=== PATIENT | male | born 1955 | race African-American/Black ===

== ENCOUNTER 2016-12-01 12:33 | Emergency (ER) | payer MEDICARE ==
[2016-12-01 14:18] LABS: Hematocrit 41 % (42-52); Hemoglobin 13.5 g/dl (14.0-18.0); Mean Corpuscular HGB Conc 33 g/dl (31-36); Mean Corpuscular Hemoglobin 32 pg (27-31); Mean Corpuscular Volume 95 fL (80-94); Mean Platelet Volume 9 um3 (7.4-10.4); Red Blood Count 4.27 10^6/ul (4.0-5.4); Red Cell Distribution Width 14 % (10.5-15); White Blood Count 4.2 10^3/ul (3.5-10.8)
[2016-12-01 14:42] LABS: ALT 20 U/L (7-52); AST 45 U/L (13-39); Albumin 3.8 g/dL (3.2-5.2); Alkaline Phosphatase 70 U/L (34-104); Anion Gap 9 mmol/L (2-11); BUN/Creatinine Ratio 9.1 (8-20); Blood Urea Nitrogen 8 mg/dL (6-24); C Reactive Protein 10.83 mg/L (< 5.00); CO2 Carbon Dioxide 25 mmol/L (22-32); Calcium 8.9 mg/dL (8.6-10.3); Chloride 104 mmol/L (101-111); EGFR Non-African American 88.6 (>60); Globulin 3.3 g/dL (2-4); Glucose 88 mg/dL (70-100); Lipase 31 U/L (11.0-82.0); Potassium 3.9 mmol/L (3.5-5.0); Sodium 138 mmol/L (133-145); Total Protein 7.1 g/dL (6.4-8.9)
[2016-12-01 15:01] LABS: Alcohol < 10 mg/dL (<10)
[2016-12-01 15:53] LABS: Urine Bilirubin Negative (Negative); Urine Glucose Negative (Negative); Urine Nitrite Negative (Negative)
[2016-12-01] MEDS ORDERED: Iohexol 300* (CONTRAST) 10 ML SDV IV ONE (16:10)
--- NOTE | 2016-12-01 16:51 | RAD ---
CLINICAL HISTORY: Left lower quadrant pain. Relevant surgical history includes appendectomy. COMPARISON: None TECHNIQUE: Contrast enhanced CT examination of the abdomen and pelvis from the lung bases through the initial tuberosities. The patient received 93 mL Omnipaque 300 intravenously prior to imaging.The patient received oral contrast as well prior to imaging. FINDINGS: VISUALIZED LUNG BASES: The visualized lung bases are grossly clear. There is no pleural effusion. ABDOMEN AND PELVIS: The liver is homogenously hypodense. The spleen, pancreas and adrenal glands are grossly normal in appearance. The gallbladder is normal. The kidneys are normal in appearance without focal mass, calcification or signs of hydronephrosis. There are contrast has progressed as far as the rectum. The small and large bowel are not distended. The patient's normal appendix is identified in the right lower quadrant. There is no gross retroperitoneal or mesenteric lymphadenopathy. The pelvic viscera is normal in appearance. The abdominal aorta and iliac arteries are normal in course and diameter. Degenerative changes include multilevel loss of intervertebral disc height involving the lower thoracic and lumbar spine and anterior marginal osteophytes at the lower thoracic spine..There are no sinister bone lesions. IMPRESSION: 1. CT findings are compatible with hepatic steatosis or other chronic infiltrative disease of the liver. 2. There is no definite inflammatory change of the gastrointestinal tract or evidence of obstruction.
[2016-12-01 17:03] VITALS: BP 156/90
--- NOTE | 2016-12-01 23:42 | ED ---
[facility], scribed for Rod Flanagan MD on 12/01/16 at 1429 . Abdominal Pain/Male - HPI Summary HPI Summary: Patient is a 60-year-old male presenting to the ED with a CC of constant LLQ pain. Patient reports this pain has been present for months, and has been gradually worsening. He describes pain as like "a torn muscle," but states it is not aggravated by movement. He states pain is worst when he wakes up in the morning and at night. Pt reports low PO intake, but denies weight loss and urinary symptoms. He states he drinks a 6 pack daily. - History of Current Complaint Chief Complaint: EDAbdPain Stated Complaint: ABD PAIN Time Seen by Provider: 12/01/16 13:37 Hx Obtained From: Patient Onset/Duration: Gradual Onset, Lasting Weeks - months, Still Present Timing: Constant Severity Initially: Mild Severity Currently: Moderate Pain Intensity: 9 Pain Scale Used: 0-10 Numeric Location: Discrete At: LLQ Radiates: No Aggravating Factor(s): Other: - worse in the morning and night Alleviating Factor(s): Nothing Associated Signs And Symptoms: Positive: Negative. Negative: Urinary Symptoms - Allergies/Home Medications Allergies/Adverse Reactions: Allergies Allergy/AdvReac Type Severity Reaction Status Date / Time Aspirin Allergy Hives Verified 11/16/16 17:51 PMH/Surg Hx/FS Hx/Imm Hx Endocrine/Hematology History: Denies: Hx Anticoagulant Therapy, Hx Diabetes, Hx Systemic Lupus Erythematosus Cardiovascular History: Denies: Hx Congestive Heart Failure, Hx Hypertension, Hx Pacemaker/ICD Respiratory History: Denies: Hx Asthma History: Denies: Hx Dialysis, Hx Renal Disease Musculoskeletal History: Reports: Other Musculoskeletal History - chronic pain Denies: Hx Rheumatoid Arthritis Psychiatric History: Denies: Hx Panic Disorder - Surgical History Surgery Procedure, Year, and Place: LEFT KNEE 09 [facility], APPENDIX 20 YRS AGO,BIG TOE SURGERY 23 YRS AGO Infectious Disease History: No Infectious Disease History: Reports: Hx Hepatitis - HEP C Denies: Hx Clostridium Difficile, Hx Human Immunodeficiency Virus (HIV), Hx of Known/Suspected MRSA, Hx Shingles, Hx Tuberculosis, Hx Known/Suspected VRE, Hx Known/Suspected VRSA, History Other Infectious Disease, Traveled Outside the [place] in Last 30 Days - Family History Known Family History: Positive: Cardiac Disease - cardiomegaly (brother) - Social History Alcohol Use: Daily Hx Tobacco Use: Yes Smoking Status (MU): Heavy Every Day Tobacco Smoker Type: Cigarettes Amount Used/How Often: 1/2 PPD Have You Smoked in the Last Year: Yes Review of Systems Gastrointestinal: Other - low PO intake Positive: Abdominal Pain - LLQ Negative: dysuria, frequency All Other Systems Reviewed And Are Negative: Yes Physical Exam Triage Information Reviewed: Yes Vital Signs On Initial Exam: Initial Vitals Temp Pulse Resp BP Pulse Ox 99 F 93 16 157/83 98 12/01/16 12:35 12/01/16 12:35 12/01/16 12:35 12/01/16 12:35 12/01/16 12:35 Vital Signs Reviewed: Yes Appearance: Positive: Well-Appearing, No Pain Distress, Thin Skin: Positive: Warm, Skin Color Reflects Adequate Perfusion, Dry Head/Face: Positive: Normal Head/Face Inspection Eyes: Positive: Normal ENT: Positive: Normal ENT inspection Neck: Positive: Supple, Nontender Respiratory/Lung Sounds: Positive: Clear to Auscultation, Breath Sounds Present Cardiovascular: Positive: RRR Abdomen Description: Positive: Soft, Other: - LLQ tenderness Bowel Sounds: Positive: Present Musculoskeletal: Positive: Normal Neurological: Positive: Normal Psychiatric: Positive: Affect/Mood Appropriate - [place] Coma Scale Coma Scale Total: 15 Diagnostics - Vital Signs Vital Signs Temp Pulse Resp BP Pulse Ox 12/01/16 13:00 78 146/78 98 12/01/16 12:56 76 98 12/01/16 12:54 155/85 12/01/16 12:35 99 F 93 16 157/83 98 - Laboratory Lab Results: Lab Results 12/01/16 12/01/16 12/01/16 Range/Units 14:05 14:05 14:05 WBC 4.2 (3.5-10.8) 10^3/ul RBC 4.27 (4.0-5.4) 10^6/ul Hgb 13.5 L (14.0-18.0) g/dl Hct 41 L (42-52) % MCV 95 H (80-94) fL MCH 32 H (27-31) pg MCHC 33 (31-36) g/dl RDW 14 (10.5-15) % Plt Count 123 L (150-450) 10^3/ul MPV 9 (7.4-10.4) um3 Neut % (Auto) 57.0 (38-83) % Lymph % (Auto) 23.0 L (25-47) % O'Brien % (Auto) 15.9 H (1-9) % Eos % (Auto) 3.5 (0-6) % Baso % (Auto) 0.6 (0-2) % Absolute Neuts (auto) 2.4 (1.5-7.7) 10^3/ul Absolute Lymphs (auto) 1.0 (1.0-4.8) 10^3/ul Absolute Monos (auto) 0.7 (0-0.8) 10^3/ul Absolute Eos (auto) 0.1 (0-0.6) 10^3/ul Absolute Basos (auto) 0 (0-0.2) 10^3/ul Absolute Nucleated RBC 0.01 10^3/ul Nucleated RBC % 0.2 Sodium 138 (133-145) mmol/L Potassium 3.9 (3.5-5.0) mmol/L Chloride 104 (101-111) mmol/L Carbon Dioxide 25 (22-32) mmol/L Anion Gap 9 (2-11) mmol/L BUN 8 (6-24) mg/dL Creatinine 0.88 (0.67-1.17) mg/dL Est GFR ( Amer) 114.0 (>60) Est GFR (Non-Af Amer) 88.6 (>60) BUN/Creatinine Ratio 9.1 (8-20) Glucose 88 (70-100) mg/dL Lactic Acid Calcium 8.9 (8.6-10.3) mg/dL Total Bilirubin 1.10 H (0.2-1.0) mg/dL AST 45 H (13-39) U/L ALT 20 (7-52) U/L Alkaline Phosphatase 70 (34-104) U/L Ammonia TNP C-Reactive Protein 10.83 H (< 5.00) mg/L Total Protein 7.1 (6.4-8.9) g/dL Albumin 3.8 (3.2-5.2) g/dL Globulin 3.3 (2-4) g/dL Albumin/Globulin Ratio 1.2 (1-3) Lipase 31 (11.0-82.0) U/L Urine Color Urine Appearance Urine pH (5-9) Ur Specific [place] (1.010-1.030) Urine Protein (Negative) Urine Ketones (Negative) Urine Blood (Negative) Urine Nitrate (Negative) Urine Bilirubin (Negative) Urine Urobilinogen (Negative) Ur Leukocyte Esterase (Negative) Urine Glucose (Negative) Serum Alcohol < 10 (<10) mg/dL 12/01/16 12/01/16 12/01/16 Range/Units 14:05 15:01 15:01 WBC (3.5-10.8) 10^3/ul RBC (4.0-5.4) 10^6/ul Hgb (14.0-18.0) g/dl Hct (42-52) % MCV (80-94) fL MCH (27-31) pg MCHC (31-36) g/dl RDW (10.5-15) % Plt Count (150-450) 10^3/ul MPV (7.4-10.4) um3 Neut % (Auto) (38-83) % Lymph % (Auto) (25-47) % O'Brien % (Auto) (1-9) % Eos % (Auto) (0-6) % Baso % (Auto) (0-2) % Absolute Neuts (auto) (1.5-7.7) 10^3/ul Absolute Lymphs (auto) (1.0-4.8) 10^3/ul Absolute Monos (auto) (0-0.8) 10^3/ul Absolute Eos (auto) (0-0.6) 10^3/ul Absolute Basos (auto) (0-0.2) 10^3/ul Absolute Nucleated RBC 10^3/ul Nucleated RBC % Sodium (133-145) mmol/L Potassium (3.5-5.0) mmol/L Chloride (101-111) mmol/L Carbon Dioxide (22-32) mmol/L Anion Gap (2-11) mmol/L BUN (6-24) mg/dL Creatinine (0.67-1.17) mg/dL Est GFR ( Amer) (>60) Est GFR (Non-Af Amer) (>60) BUN/Creatinine Ratio (8-20) Glucose (70-100) mg/dL Lactic Acid TNP 0.7 Calcium (8.6-10.3) mg/dL Total Bilirubin (0.2-1.0) mg/dL AST (13-39) U/L ALT (7-52) U/L Alkaline Phosphatase (34-104) U/L Ammonia 48 C-Reactive Protein (< 5.00) mg/L Total Protein (6.4-8.9) g/dL Albumin (3.2-5.2) g/dL Globulin (2-4) g/dL Albumin/Globulin Ratio (1-3) Lipase (11.0-82.0) U/L Urine Color Urine Appearance Urine pH (5-9) Ur Specific [place] (1.010-1.030) Urine Protein (Negative) Urine Ketones (Negative) Urine Blood (Negative) Urine Nitrate (Negative) Urine Bilirubin (Negative) Urine Urobilinogen (Negative) Ur Leukocyte Esterase (Negative) Urine Glucose (Negative) Serum Alcohol (<10) mg/dL 12/01/16 Range/Units 15:35 WBC (3.5-10.8) 10^3/ul RBC (4.0-5.4) 10^6/ul Hgb (14.0-18.0) g/dl Hct (42-52) % MCV (80-94) fL MCH (27-31) pg MCHC (31-36) g/dl RDW (10.5-15) % Plt Count (150-450) 10^3/ul MPV (7.4-10.4) um3 Neut % (Auto) (38-83) % Lymph % (Auto) (25-47) % O'Brien % (Auto) (1-9) % Eos % (Auto) (0-6) % Baso % (Auto) (0-2) % Absolute Neuts (auto) (1.5-7.7) 10^3/ul Absolute Lymphs (auto) (1.0-4.8) 10^3/ul Absolute Monos (auto) (0-0.8) 10^3/ul Absolute Eos (auto) (0-0.6) 10^3/ul Absolute Basos (auto) (0-0.2) 10^3/ul Absolute Nucleated RBC 10^3/ul Nucleated RBC % Sodium (133-145) mmol/L Potassium (3.5-5.0) mmol/L Chloride (101-111) mmol/L Carbon Dioxide (22-32) mmol/L Anion Gap (2-11) mmol/L BUN (6-24) mg/dL Creatinine (0.67-1.17) mg/dL Est GFR ( Amer) (>60) Est GFR (Non-Af Amer) (>60) BUN/Creatinine Ratio (8-20) Glucose (70-100) mg/dL Lactic Acid Calcium (8.6-10.3) mg/dL Total Bilirubin (0.2-1.0) mg/dL AST (13-39) U/L ALT (7-52) U/L Alkaline Phosphatase (34-104) U/L Ammonia C-Reactive Protein (< 5.00) mg/L Total Protein (6.4-8.9) g/dL Albumin (3.2-5.2) g/dL Globulin (2-4) g/dL Albumin/Globulin Ratio (1-3) Lipase (11.0-82.0) U/L Urine Color Yellow Urine Appearance Clear Urine pH 5.0 (5-9) Ur Specific [place] 1.019 (1.010-1.030) Urine Protein Negative (Negative) Urine Ketones 1+ H (Negative) Urine Blood Negative (Negative) Urine Nitrate Negative (Negative) Urine Bilirubin Negative (Negative) Urine Urobilinogen Negative (Negative) Ur Leukocyte Esterase Negative (Negative) Urine Glucose Negative (Negative) Serum Alcohol (<10) mg/dL Result Diagrams: 12/01/16 14:05 12/01/16 14:05 Lab Statement: Any lab studies that have been ordered have been reviewed, and results considered in the medical decision making process. - CT CT A/P W/ CT Interpretation Completed By: Radiologist - IMPRESSION: 1. CT findings are compatible with hepatic steatosis or other chronic infiltrative disease of the liver. 2. There is no definite inflammatory change of the gastrointestinal tract or evidence of obstruction. Re-Evaluation - Re-Evaluation First Eval Re-Evaluation Time: 16:56 Comment: Discussed CT findings and lab results with patient. Abdominal Pain Fem Course/Dx - Course Course Of Treatment: Mr. Lorenzo has had LLQ pain for months and no source was found on my evaluation. I recommended GI F/U. - Diagnoses Provider Diagnoses: Abdominal pain Discharge - Discharge Plan Condition: Stable Disposition: HOME Prescriptions: traMADol TAB* [Ultram*] 25 mg PO Q6HR PRN #20 tab MDD 4 PRN Reason: Pain Patient Education Materials: Abdominal Pain (ED) Referrals: [facility] [place] [facility]IAN REFERRAL [Outside] Additional Instructions: Please use the Physician Referral Service to find a PCP and follow up with them. The documentation as recorded by the [facility] accurately reflects the service I personally performed and the decisions made by me, Rod Flanagan MD.
== END 2016-12-01 17:03 | disposition home or self-care (01) ==
LOC: ED 12:33
DX: R10.32 Left lower quadrant pain (principal); Z88.6 Allergy status to analgesic agent; G89.29 Other chronic pain; B19.20 Unspecified viral hepatitis C without hepatic coma
CPT/HCPCS: 36415; 74177; 80053; 80320; 81003; 82140; 83605; 83690; 85025; 86140; 99282; G0480; Q9967

== ENCOUNTER 2017-01-03 14:35 | Emergency (ER) | payer MEDICARE ==
--- NOTE | 2017-01-03 15:12 | UC ---
General HPI - HPI Summary HPI Summary: The patient comes in today for: 1. Upper back pain, neck pain, left shoulder pain, "I think I got hit in the eye--it has a little dent in it": Onset: "a couple days ago." Palliative/provocative: Pain is worse if he is in a seated position and he has not moved for a while-moving at that time makes it worse. Ice made the eye better yesterday. Quality: Dull Region: More of the right shoulder and middle of the upper back. Severity: 12/17 Time: Comes and goes--depending on his movement. It is better when he moves around--more of a pain after he sits a while and then moves around. Associated symptoms: Fevers: None Event: He fell forwards a few days ago. He was drinking and thinks that he tripped on his way out of his home. He landed on his hands, but he keep moving hitting his head on the staircase. He laid there for a minute and pushed himself up. He got himself "turned around" and went back upstairs and sat down. He stayed there for a while. He denies a headache, but states that he thinks that he had LOC. He describes disorientation initially, but not now. He denies any weakness of numbness. He had some nausea initially, but not now. He does not complain of any FB sensation in the eye--just the "dent." * - History of Current Complaint Chief Complaint: UCBackPain Stated Complaint: NECK,BACK INJURY, EYE INJURY Time Seen by Provider: 01/03/17 15:00 Hx Obtained From: Patient - Allergy/Home Medications Allergies/Adverse Reactions: Allergies Allergy/AdvReac Type Severity Reaction Status Date / Time Aspirin Allergy Hives Verified 01/03/17 14:42 PMH/Surg Hx/FS Hx/Imm Hx Previously Healthy: No - Lower back pain--w/ hx injections. Other History Of: Hepatitis C - Had Hepatitis C but treated and it is "cleared. " Negative For: Anticoagulant Therapy - Surgical History Surgical History: Yes Surgery Procedure, Year, and Place: LEFT KNEE 09 [facility], APPENDIX 20 YRS AGO,BIG TOE SURGERY 23 YRS AGO - Family History Known Family History: Positive: Cardiac Disease - cardiomegaly (brother), Respiratory Disease - Brother asthma - Social History Occupation: Unemployed Lives: Alone Alcohol Use: Daily - He drinks about two to three 16 ounce bottles/day. Alcohol Amount: a couple can a beer a day Substance Use Type: None Substance Use Comment - Amount & Last Used: hx Smoking Status (MU): Heavy Every Day Tobacco Smoker Type: Cigarettes Amount Used/How Often: 1/2 PPD Have You Smoked in the Last Year: Yes Household Exposure Type: Cigarettes Review of Systems Constitutional: Negative Skin: Negative Eyes: Negative ENT: Negative Respiratory: Negative Cardiovascular: Chest Pain - Present--ache-like. It hurts more when he takes a deep breath. It is retrosternal. exertion does not make it worse. Gastrointestinal: Negative Genitourinary: Negative Musculoskeletal: Arthralgia All Other Systems Reviewed And Are Negative: Yes Physical Exam Triage Information Reviewed: Yes Appearance: Well-Appearing, No Pain Distress, Thin Vital Signs: Initial Vital Signs Temp 97.0 F 01/03/17 14:37 Pulse 95 01/03/17 14:37 Resp 20 01/03/17 14:37 BP 142/84 01/03/17 14:37 Pulse Ox 97 01/03/17 14:37 Vital Signs Reviewed: Yes Eyes: Positive: Conjunctiva Clear, Other: - The "dent" in his left eye is actually a pinguecula. No corneal abnormality seen. ENT: Positive: Hearing grossly normal. Negative: Pharyngeal erythema, Nasal congestion, Nasal drainage, TM bulging, TM dull, TM red, Tonsillar swelling, Tonsillar exudate Dental: Negative: Gross Decay/Caries @, Dental Fracture @ Neck: Positive: Supple - for his age and degree of osteoarthritis of the C- spine., Nontender, No Lymphadenopathy, Other: - He has reduced rotation bilaterally and flexion bilaterally. Respiratory: Positive: Chest non-tender, Lungs clear, No respiratory distress. Negative: Rhonchi, Wheezing Cardiovascular: Positive: RRR, No Murmur Abdomen Description: Positive: No Organomegaly, Soft. Negative: Nontender - He has tenderness of the RUQ, and the LUQ and the epigastrium. There is also tenderness of the RLQ. No masses or rebound or percussion tenderness., Distended, Guarding Musculoskeletal: Positive: Strength Intact, No Edema, ROM Limited @ - Neck, Other: - He has trigger points of pain with palpation along the medial and superior borders of the scapula bilaterally and of the trapezius bilaterally. Neurological: Positive: Alert, Muscle Tone Normal Psychological: Positive: Age Appropriate Behavior, Consolable Skin: Negative: rashes, breakdown Diagnostics - Laboratory Diagnostic Studies Completed/Ordered: EKG: Rate: 66/min. Rhythm: sinus. Poor R wave progression. Ectopy: NOne. [place] (normal---+ 30 degrees). Acute changes : None. Possible atrial enlargement. - Radiology No standard instances Xray Interpretation: No Acute Changes - He has arthritis changes of his C-spine but no intracranial bleed. He had stigmata of COPD. Radiology Interpretation Completed By: Radiologist Course/Dx - Course Course Of Treatment: Patient was told that I am not able to determine for sure what is causing his abdominal pain or chest pain. He states that he has had chronic abdominal pain. HE does not have a primary care provider. The patient was told that I don't know for sure what is causing his chest and abdominal. pain. The patient was also told that there are many causes for chest and abdominal pain--. some which are benign and some which are life-threatening. Furthermore, it was. mentioned that the life-threatening causes of chest and abdominal pain can present with. minimal, atypical, or even no symptoms. Becasue of these facts and the fact. that we don't have here all the testing methods commonly used to assess chest and abdominal. pain, and their timely resuts, my recommendation is for the patient to go to. the [facility] ([facility] [place]) ER. However, the patient declined to do this and instead states that he is going to try to get an appointment with a beef specialist. He did want some pain medications for his back. He has tolerated ultram in the past. - Differential Dx - Multi-Symptom Provider Diagnoses: Shoulder pain. 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 abdominal pain--etiology undetermined. Chest pain-- etiology undetermined. Upper back pain/muscular strain Discharge - Discharge Plan Condition: Stable Disposition: AGAINST MEDICAL ADVICE Patient Education Materials: Back Pain (ED), Pinguecula (ED) Referrals: No Primary Care Phys,NOPCP [Primary Care Provider] - [facility] [place] [facility]FERR[facility] [Outside] Additional Instructions: If you are not going to the ER for evaluation of your chest and abdominal pain, please see your primary care provider as soon as you can. If you get worse please consider going to the ER.
--- NOTE | 2017-01-03 15:43 | RAD ---
HISTORY: Head injury, loss of consciousness COMPARISONS: July 13, 2008 TECHNIQUE: Multiple contiguous axial CT scans were obtained of the head without intravenous contrast. FINDINGS: HEMORRHAGE/INFARCT: There is no hemorrhage or acute infarct. MASSES/SHIFT: There is no mass or shift. EXTRA-AXIAL SPACES: There are no extra-axial fluid collections. SULCI AND VENTRICLES: The sulci and ventricles are normal in size and position for the patient's stated age. CEREBRUM: There are no focal parenchymal abnormalities. BRAINSTEM: There are no focal parenchymal abnormalities. CEREBELLUM: There are no focal parenchymal abnormalities. VESSELS: The vessels are grossly normal. PARANASAL SINUSES: The paranasal sinuses are clear. ORBITS: The orbits are unremarkable. BONES AND SOFT TISSUE: No bone or soft tissue abnormalities are noted. OTHER: None IMPRESSION: NO ACUTE INTRACRANIAL PATHOLOGY.
--- NOTE | 2017-01-03 15:52 | RAD ---
INDICATION: Neck pain post fall. COMPARISON: July 13, 2008 TECHNIQUE: Multidetector CT images foramen magnum to lung apices without contrast. Multiplanar reformation. REPORT: Second data acquisition at the C2-C3 level due to motion artifact on the initial exam. Normal vertebral alignment accounting for exam positioning without spondylolisthesis or subluxation at any level. Negative for cervical vertebral body or posterior element fracture. Negative for paravertebral hematoma. Multilevel degenerative spondylosis with large predominant anterior osteophytes with interval worsening compared with the prior exam. Anterior ankylosis at the C6-C7 and C7-T1 levels. Diffuse facet joint osteoarthritis. C2-C3: Mild uncinate process spurring and facet joint osteoarthritis results in mild bilateral foraminal stenosis. C3-C4: Uncinate process spurring and facet joint osteoarthritis results in mild RIGHT foraminal stenosis. C4-C5: Uncinate process spurring and facet joint osteoarthritis results in mild RIGHT foraminal stenosis. IMPRESSION: No CT evidence for traumatic cervical spine injury.
--- NOTE | 2017-01-03 16:22 | RAD ---
INDICATION: Central chest pain post fall 4 days ago. History of tobacco use. COMPARISON: December 01, 2016 CT abdomen July 29, 2014 chest radiograph TECHNIQUE: Dual energy PA and routine lateral views of the chest were obtained. REPORT: Elevated lung volumes and patchy rarefaction of the interstitial markings. No alveolar consolidation, focal pulmonary lesion, pleural effusion, pneumothorax. The heart, pulmonary vasculature, and mediastinal contours are unremarkable. No fractures or suspicious focal osseous lesions. Multilevel thoracic spine degenerative spondylosis and Multilevel segmental ossification of the anterior longitudinal ligament of the thoracic spine consistent with Diffuse Idiopathic Skeletal Hyperostosis (DISH). IMPRESSION: Stigmata of obstructive lung disease. No acute pulmonary or cardiac process evident.
[2017-01-03 17:38] VITALS: BP 142/89
== END 2017-01-03 17:15 | disposition left against medical advice (07) ==
LOC: UCEAST 14:35
DX: M25.511 Pain in right shoulder (principal); M47.892 Other spondylosis, cervical region; H11.152 Pinguecula, left eye; R10.11 Right upper quadrant pain; R10.12 Left upper quadrant pain; R10.13 Epigastric pain; R07.9 Chest pain, unspecified; S29.012A Strain of muscle and tendon of back wall of thorax, initial encounter; W01.0XXA Fall on same level from slipping, tripping and stumbling without subsequent striking against object, initial encounter; Y93.01 Activity, walking, marching and hiking; Y92.9 Unspecified place or not applicable; Y99.9 Unspecified external cause status; F10.10 Alcohol abuse, uncomplicated; Z72.0 Tobacco use
CPT/HCPCS: 70450; 71020; 72125; 93005; 99212; G0463

== ENCOUNTER 2017-05-25 15:43 | Emergency (ER) | payer MEDICARE, MEDICAID ==
[2017-05-25] MEDS ORDERED: NS 0.9% 1000 ML* 1,000 ML IV ONE (16:18)
[2017-05-25 17:31] LABS: Hematocrit 38 % (42-52); Hemoglobin 12.7 g/dl (14.0-18.0); Mean Corpuscular HGB Conc 33 g/dl (31-36); Mean Corpuscular Hemoglobin 32 pg (27-31); Mean Corpuscular Volume 95 fL (80-94); Mean Platelet Volume 10 um3 (7.4-10.4); Red Blood Count 4.02 10^6/ul (4.0-5.4); Red Cell Distribution Width 14 % (10.5-15); White Blood Count 12.8 10^3/ul (3.5-10.8)
[2017-05-25 17:36] LABS: Albumin 3.9 g/dL (3.2-5.2); C Reactive Protein 123.29 mg/L (< 5.00); Comments Flag Yes; EGFR African American 121.5 (>60); EGFR Non-African American 94.5 (>60); Globulin 3.6 g/dL (2-4); Total Bilirubin 1.2 mg/dL (0.2-1.0); Total Protein 7.5 g/dL (6.4-8.9)
[2017-05-25] MEDS ORDERED: cefTRIAXone VIAL(*) 1,000 MG in NS 0.9% 50 ML* 50 ML IVPB ONE (18:01)
--- NOTE | 2017-05-25 18:06 | RAD ---
INDICATION: Productive cough. History of tobacco use. Flulike symptoms. COMPARISON: January 03, 2017 chest radiograph and December 01, [address] TECHNIQUE: Dual energy PA and routine lateral views of the chest were obtained. REPORT: Elevated lung volumes and both diffuse mild prominence of the interstitial markings and patchy rarefaction of the mid to upper lung zone interstitial markings. No focal pulmonary lesion, compelling alveolar consolidation, pleural effusion, pneumothorax. The heart, pulmonary vasculature, and mediastinal contours are unremarkable. Multilevel segmental ossification of the anterior longitudinal ligament of the thoracic spine consistent with Diffuse Idiopathic Skeletal Hyperostosis (DISH). IMPRESSION: Stigmata of obstructive lung disease. No acute pulmonary or cardiac process evident.
--- NOTE | 2017-05-25 19:01 | ED ---
David Cruz Angela, scribed for Joe Brock MD on 05/25/17 at 1619 . Influenza-Like Illness - HPI Summary HPI Summary: This pt is a 61 y/o male [place] [facility] [place], chills and productive cough for a couple of days. Pt additionally notes he has a sore throat, body aches, and intermittent subjective fevers. Pt denies rhinorrhea. No PMHx of asthma. - History of Current Complaint Chief Complaint: EDFluSymptoms Hx Obtained From: Patient Onset/Duration: Gradual Onset, Lasting Days, Still Present Severity: Moderate Associated Signs & Symptoms: Fever, F/C - chills, Cough, Sore Throat - Allergy/Home Medications Allergies/Adverse Reactions: Allergies Allergy/AdvReac Type Severity Reaction Status Date / Time Aspirin Allergy Hives Verified 01/03/17 14:42 PMH/Surg Hx/FS Hx/Imm Hx Endocrine/Hematology History: Denies: Hx Anticoagulant Therapy, Hx Diabetes, Hx Systemic Lupus Erythematosus Cardiovascular History: Denies: Hx Congestive Heart Failure, Hx Hypertension, Hx Pacemaker/ICD Respiratory History: Denies: Hx Asthma GI History: Reports: Other GI Disorders - Hepattis C History: Denies: Hx Dialysis, Hx Renal Disease Musculoskeletal History: Reports: Other Musculoskeletal History - chronic pain Denies: Hx Rheumatoid Arthritis Sensory History: Denies: Hx Cataracts, Hx Contacts or Glasses, Hx Eye Injury, Hx Eye Prosthesis, Hx Glaucoma, Hx Legally Blind, Hx Macular Degeneration, Hx Vision Problem, Hx Deafness, Hx Hearing Aid, Hx Hearing Problem, Other Sensory Impairments Opthamlomology History: Denies: Hx Cataracts, Hx Contacts or Glasses, Hx Eye Injury, Hx Eye Prosthesis, Hx Glaucoma, Hx Legally Blind, Hx Macular Degeneration, Hx Vision Problem, Other Sensory Impairments Neurological History: 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 Denies: Hx Dementia, Hx Developmental Delay, Hx Headaches, Hx Migraine, Hx Nerve Disease, Hx Seizures, Hx Spinal Cord Injury, Hx Transient Ischemic Attacks (TIA) Psychiatric History: Denies: Hx Panic Disorder - Surgical History Surgery Procedure, Year, and Place: [place] 09 [facility] [place],BIG TOE SURGERY 23 YRS AGO Infectious Disease History: No Infectious Disease History: Reports: Hx Hepatitis - HEP C Denies: Hx Clostridium Difficile, Hx Human Immunodeficiency Virus (HIV), Hx of Known/Suspected MRSA, Hx Shingles, Hx Tuberculosis, Hx Known/Suspected VRE, Hx Known/Suspected VRSA, History Other Infectious Disease, Traveled Outside the [place] in Last 30 Days - Family History Known Family History: Positive: Cardiac Disease - cardiomegaly (brother), Respiratory Disease - Brother asthma - Social History Alcohol Use: None Alcohol Amount: a couple can a beer a day Substance Use Type: Reports: None Substance Use Comment - Amount & Last Used: hx Hx Tobacco Use: Yes Smoking Status (MU): Heavy Every Day Tobacco Smoker Type: Cigarettes Amount Used/How Often: 1/2 PPD Have You Smoked in the Last Year: Yes Review of Systems Positive: Fever - subjective, Chills Positive: Sore Throat. Negative: Other - rhinorrhea Positive: Cough - productive Genitourinary: Negative Positive: Myalgia - body aches Skin: Negative Neurological: Negative All Other Systems Reviewed And Are Negative: Yes Physical Exam - Summary Physical Exam Summary: VITAL SIGNS: Reviewed. GENERAL: Patient is a well-developed and nourished male who is lying comfortable in the stretcher. Patient is not in any acute respiratory distress. HEAD AND FACE: No signs of trauma. No ecchymosis, hematomas or skull depressions. No sinus tenderness. EYES: PERRLA, EOMI x 2, No injected conjunctiva, no nystagmus. EARS: Hearing grossly intact. Ear canals and tympanic membranes are within normal limits. MOUTH: Oropharynx within normal limits. NECK: Supple, trachea is midline, no adenopathy, no JVD, no carotid bruit, no c- spine tenderness, neck with full ROM. CHEST: Symmetric, no tenderness at palpation LUNGS: Crackles in both bases of the lungs. CVS: Regular rate and rhythm, S1 and S2 present, no murmurs or gallops appreciated. ABDOMEN: Soft, non-tender. No signs of distention. No rebound no guarding, and no masses palpated. Bowel sounds are normal. EXTREMITIES: FROM in all major joints, no edema, no cyanosis or clubbing. NEURO: Alert and oriented x 3. No acute neurological deficits. Speech is normal and follows commands. SKIN: Dry and warm Triage Information Reviewed: Yes Vital Signs On Initial Exam: Initial Vitals Temp Pulse Resp BP Pulse Ox 97.9 F 109 20 121/66 96 05/25/17 15:52 05/25/17 15:52 05/25/17 15:52 05/25/17 15:52 05/25/17 15:52 Vital Signs Reviewed: Yes Diagnostics - Vital Signs Vital Signs Temp Pulse Resp BP Pulse Ox 05/25/17 15:52 97.9 F 109 20 121/66 96 - Laboratory Result Diagrams: 05/25/17 17:08 05/25/17 17:08 Lab Statement: Any lab studies that have been ordered have been reviewed, and results considered in the medical decision making process. - Radiology Chest XR Xray Interpretation: Positive (See Comments) - IMPRESSION: Stigmata of obstructive lung disease. No acute pulmonary or cardiac process evident. Radiology Interpretation Completed By: Radiologist Flu Symptom Course/Dx - Course Assessment/Plan: This pt is a 61 y/o male [place] [facility] [place] cough, chills and productive cough for a couple of days. Pt additionally notes he has a sore throat, body aches, and intermittent subjective fevers. Pt denies rhinorrhea. No PMHx of asthma. Test results shows WBC of 12.8, slight anemia, and CRP of 123. Rapid strep is negative. Influenza A and B are both negative. Chest XR is negative. However, in my physical exam the pt had crackles in both bases of the lungs, therefore, he may have early pneumonia. Pt was given Rocephin vial. Pt will be discharged home with a prescription for azithromycin. - Diagnoses Provider Diagnoses: early pneumonia Discharge - Discharge Plan Condition: Stable Disposition: HOME Prescriptions: Azithromycin TAB* [Zithromax TAB (Z-MARYJANE) 250 mg #6 tabs] 2 tab PO .TODAY, THEN 1 DAILY #1 maryjane Patient Education Materials: Pneumonia (ED) [place]errals[place] [facility] [place] [facility] [Outside] Additional Instructions: Please follow up with your primary care provider. RETURN TO THE ED FOR ANY WORSENING SYMPTOMS. The documentation as recorded by the David mac Angela accurately reflects the service I personally performed and the decisions made by me, Joe Brock MD.
[2017-05-25 19:15] VITALS: BP 138/80
== END 2017-05-25 19:16 | disposition home or self-care (01) ==
LOC: ED 15:43
DX: J18.9 Pneumonia, unspecified organism (principal); J02.9 Acute pharyngitis, unspecified; R50.9 Fever, unspecified; R05 Cough; F17.210 Nicotine dependence, cigarettes, uncomplicated
CPT/HCPCS: 36415; 71020; 80053; 83605; 85025; 86140; 87502; 87651; 99283; J0696

== ENCOUNTER 2018-01-29 12:34 | Emergency (ER) | payer MEDICARE, MEDICAID ==
--- NOTE | 2018-01-29 15:33 | RAD ---
INDICATION: Right fifth metatarsal swelling COMPARISON: None TECHNIQUE: AP, lateral, and oblique views were obtained. FINDINGS: The bony structures are osteopenic. There is no acute osseous change. There is degenerative spurring about the talonavicular articulation along the dorsum of the foot. There are no additional osseous findings. There is no foreign body. IMPRESSION: NO FRACTURE OR FOREIGN BODY.
--- NOTE | 2018-01-29 15:40 | ED ---
Lower Extremity - HPI Summary HPI Summary: Pain here w/ pain on bottom of Rt foot. This has been progressing over time - has an area of hard skin here, puhsing into foot every time he steps down. Has been stepping onto lateral aspect of foot to avoid pain but this is triggering other aches/pains d/t abnormal gait. Denies h/o injury or known FB but can't be sure about the latter. Has tried [id number] doughnut pad, soaking feet and "liquid nail irish stuff for skin removal" w/o relief. Denies fever, chills , numbness, tingling or weakness. - History of Current Complaint Chief Complaint: EDExtremityLower Stated Complaint: RT FOOT PAIN Time Seen by Provider: 01/29/18 14:04 Hx Obtained From: Patient Pain Intensity: 7 - Allergies/Home Medications Allergies/Adverse Reactions: Allergies Allergy/AdvReac Type Severity Reaction Status Date / Time aspirin Allergy Hives Verified 01/29/18 12:59 propoxyphene [From Darvon] Allergy Hives Verified 01/29/18 12:59 PMH/Surg Hx/FS Hx/Imm Hx Previously Healthy: Yes Endocrine/Hematology History: Denies: Hx Anticoagulant Therapy, Hx Diabetes, Hx Systemic Lupus Erythematosus Cardiovascular History: Denies: Hx Congestive Heart Failure, Hx Hypertension, Hx Pacemaker/ICD Respiratory History: Denies: Hx Asthma GI History: Reports: Other GI Disorders - Hepattis C History: Denies: Hx Dialysis, Hx Renal Disease Musculoskeletal History: Reports: Other Musculoskeletal History - chronic pain Denies: Hx Rheumatoid Arthritis Sensory History: Denies: Hx Cataracts, Hx Contacts or Glasses, Hx Eye Injury, Hx Eye Prosthesis, Hx Glaucoma, Hx Legally Blind, Hx Macular Degeneration, Hx Vision Problem, Hx Deafness, Hx Hearing Aid, Hx Hearing Problem, Other Sensory Impairments Opthamlomology History: Denies: Hx Cataracts, Hx Contacts or Glasses, Hx Eye Injury, Hx Eye Prosthesis, Hx Glaucoma, Hx Legally Blind, Hx Macular Degeneration, Hx Vision Problem, Other Sensory Impairments Neurological History: 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 Denies: Hx Dementia, Hx Developmental Delay, Hx Headaches, Hx Migraine, Hx Nerve Disease, Hx Seizures, Hx Spinal Cord Injury, Hx Transient Ischemic Attacks (TIA) Psychiatric History: Denies: Hx Panic Disorder - Surgical History Surgery Procedure, Year, and Place: LEFT KNEE 09 [facility], APPENDIX 20 YRS AGO,BIG TOE SURGERY 23 YRS AGO - Immunization History Immunizations Up to Date: Yes Infectious Disease History: No Infectious Disease History: Reports: Hx Hepatitis - HEP C Denies: Hx Clostridium Difficile, Hx Human Immunodeficiency Virus (HIV), Hx of Known/Suspected MRSA, Hx Shingles, Hx Tuberculosis, Hx Known/Suspected VRE, Hx Known/Suspected VRSA, History Other Infectious Disease, Traveled Outside the [place] in Last 30 Days - Family History Known Family History: Positive: Cardiac Disease - cardiomegaly (brother), Respiratory Disease - Brother asthma - Social History 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 Alcohol Use: Occasionally Alcohol Amount: a couple can a beer a day Hx Substance Use: No Substance Use Type: Reports: None Substance Use Comment - Amount & Last Used: hx Hx Tobacco Use: Yes Smoking Status (MU): Current Every Day Smoker Type: Cigarettes Amount Used/How Often: 1 ppd Have You Smoked in the Last Year: Yes Review of Systems Constitutional: Negative Negative: Fever, Chills, Fatigue Positive: no symptoms reported Musculoskeletal: Negative Negative: Decreased ROM, Edema Skin: Other - thick painful skin on foot Neurological: Negative Psychological: Normal All Other Systems Reviewed And Are Negative: Yes Physical Exam Triage Information Reviewed: Yes Vital Signs On Initial Exam: Initial Vitals Temp Pulse Resp BP Pulse Ox 97.6 F 62 18 140/76 100 01/29/18 12:40 01/29/18 12:40 01/29/18 12:40 01/29/18 12:40 01/29/18 12:40 Vital Signs Reviewed: Yes Appearance: Positive: Well-Appearing, No Pain Distress, Well-Nourished Skin: Positive: Warm, Skin Color Reflects Adequate Perfusion, Dry - callus along lateral aspect of Rt foot plantar surface - firm, hard, and tender with deep palpation - no erythema, no edema, no streaking, no drainage, no signs of FB but skin is darker here and opaque Head/Face: Positive: Normal Head/Face Inspection Eyes: Positive: EOMI ENT: Positive: Hearing grossly normal Cardiovascular: Positive: Pulses are Symmetrical in both Upper and Lower Extremities. Negative: Leg Edema Left, Leg Edema Right Musculoskeletal: Positive: Normal, Strength/ROM Intact Neurological: Positive: Normal, Sensory/Motor Intact, Alert, Oriented to Person Place, Time, CN Intact II-III Psychiatric: Positive: Normal Diagnostics - Vital Signs Vital Signs Temp Pulse Resp BP Pulse Ox 01/29/18 12:40 97.6 F 62 18 140/76 100 - Laboratory Lab Statement: Any lab studies that have been ordered have been reviewed, and results considered in the medical decision making process. Lower Extremity Course/Dx - Course Course Of Treatment: XR: no FB present in tissue and no acute fx/dislocation - Diagnoses Provider Diagnoses: Callus of foot Discharge - Sign-Out/Discharge Documenting (check all that apply): Patient Departure - Discharge Plan Condition: Stable Disposition: HOME Referrals: Berkley Benavides DPM [Doctor of Podiatric Medicine] - Additional Instructions: You appear to have a callus on the bottom of her foot causing her pain. It is important to follow up with club concierge for further care as you have reported multiple attempts at treating these yourself without relief. A padded "doughnut " has been placed today to eat in your pain relief however this is just a temporary fix. *If you develop fever, chills, swelling, numbness, tingling, return to the emergency department. - Billing Disposition and Condition Condition: STABLE Disposition: Home
[2018-01-29 16:28] VITALS: BP 136/66
== END 2018-01-29 15:55 | disposition home or self-care (01) ==
LOC: ED 12:34
DX: L84 Corns and callosities (principal); G89.29 Other chronic pain; F17.210 Nicotine dependence, cigarettes, uncomplicated
CPT/HCPCS: 99282